=== PATIENT | male | born 1960 | race Two or more races ===

== ENCOUNTER 2019-07-03 17:17 | Inpatient (IN) | payer OTHER ==
[~2019-07-03] VITALS: Ht 170.2 cm; Wt 86.2 kg
[2019-07-25] MEDS ORDERED: HUMIRA40 MG/0.2 (15:20)
[2019-07-25] MEDS ORDERED: TREXALL15 MG PO (15:20)
[2019-07-25] MEDS ORDERED: ZOCOR40 MG PO (15:21)
[2019-07-25] MEDS ORDERED: PLAQUENIL PO (15:21)
[2019-08-01] MEDS ORDERED: HYDROXYCHLOROQ200 MG PO (10:08)
== END 2019-08-03 14:23 | DRG 470 ==
LOC: SURH 08-01 06:00 → O/R 08-01 06:00 → SURG 08-01 07:00 → SURH 08-01 12:20 → SURG 08-01 14:15 → SURH 08-03 14:23
PROVIDERS: ADMIT Orthopaedic Surgery
PROC: 0SR90J9 Replacement of Right Hip Joint with Synthetic Substitute, Cemented, Open Approach (ICD-10-PCS; principal; 2019-08-01 07:00)
DX: M16.11 Unilateral primary osteoarthritis, right hip (principal)